=== PATIENT | male | born 1980 | race African-American/Black ===

== ENCOUNTER 2016-12-27 22:06 | Emergency (ER) | payer MEDICAID ==
[~2016-12-27] VITALS: Ht 177.8 cm; Wt 75.0 kg
[2016-12-27] MEDS ORDERED: LEVETIRACETAM 500MG TABLET PO ONE (22:45)
[2016-12-27 23:31] LABS: BASOPHILS % 0.1 % (0.0-2.0); EOSINOPHILS % 1.5 % (0.0-5.0); HEMATOCRIT. 41.1 % (42.0-52.0); HEMOGLOBIN. 14.3 g/dL (14.0-18.0); MEAN CORPUSCULAR HEMOGLOBIN 33.5 pg (28.0-32.0); MEAN CORPUSCULAR VOLUME 96.4 fL (80.0-94.0); MEAN PLATELET VOLUME 8.6 fl (7.4-10.4); MONOCYTES % 6.8 % (2.0-8.0); NEUTROPHILS % 79.6 % (40.0-76.0); PLATELET 110 x1000/uL (130-400); RED BLOOD CELL COUNT 4.27 mill/uL (4.7-6.1); RED CELL DISTRIBUTION WIDTH 12.6 % (11.6-14.6)
[2016-12-27 23:32] LABS: CARBON DIOXIDE 27 mEq/L (21-32); CHLORIDE 97 mEq/L (98-107)
[2016-12-28 00:31] VITALS: BP 134/105
== END 2016-12-28 00:48 | disposition home or self-care (01) ==
LOC: ER 12-28 00:05
DX: R56.9 Unspecified convulsions (principal); F17.210 Nicotine dependence, cigarettes, uncomplicated
CPT/HCPCS: 36415; 80053; 85025; 99284; Z7610

== ENCOUNTER 2017-01-10 02:40 | Inpatient (IN) | payer MEDICAID ==
[~2017-01-10] VITALS: Ht 177.8 cm; Wt 74.8 kg
[2017-01-10] MEDS ORDERED: MORPHINE SULFATE 4 MG/ML CPJ (NOT FOR IM USE) IV STA (05:34)
[2017-01-10] MEDS ORDERED: FAMOTIDINE 20MG/2ML VIAL IV STA (05:34)
[2017-01-10] MEDS ORDERED: ONDANSETRON HCL 4MG/2ML VIAL IV STA (05:34)
[2017-01-10] MEDS ORDERED: SODIUM CHLORIDE 0.9% 1,000 ML IV ONE (05:34)
[2017-01-10 06:11] LABS: INR 1.1; PROTHROMBIN TIME 11.5 sec (9.4-11.6)
[2017-01-10 06:13] LABS: BASOPHILS % 0.7 % (0.0-2.0); EOSINOPHILS % 0.3 % (0.0-5.0); HEMATOCRIT. 38.3 % (42.0-52.0); HEMOGLOBIN. 13.1 g/dL (14.0-18.0); LYMPHOCYTES % 17.9 % (20.0-50.0); MEAN CORPUSCULAR HEMOGLOBIN 32.9 pg (28.0-32.0); MEAN CORPUSCULAR VOLUME 96.6 fL (80.0-94.0); MONOCYTES % 5.1 % (2.0-8.0); PLATELET 204 x1000/uL (130-400); RED BLOOD CELL COUNT 3.97 mill/uL (4.7-6.1); RED CELL DISTRIBUTION WIDTH 13.3 % (11.6-14.6)
[2017-01-10 06:17] LABS: CARBON DIOXIDE 24 mEq/L (21-32); CHLORIDE 103 mEq/L (98-107); ETHANOL BLOOD 191 mg/dL
[2017-01-10] MEDS ORDERED: SODIUM CHLORIDE 0.9% 1,000 ML IV SCH (07:50)
[2017-01-10] MEDS ORDERED: MORPHINE SULFATE 2 MG/ML CPJ (NOT FOR IM USE) IV ONE (08:15)
[2017-01-10 09:00] VITALS: BP 167/104
[2017-01-10 09:14] LABS: CLARITY URINE CLEAR (CLEAR); COLOR URINE DARK YELLOW (YELLOW); GLUCOSE URINE NEGATIVE (NEGATIVE); KETONES URINE NEGATIVE (NEGATIVE); LEUKOCYTE ESTERASE URINE NEGATIVE (NEGATIVE); NITRITE URINE NEGATIVE (NEGATIVE); OCCULT BLOOD URINE NEGATIVE (NEGATIVE); PROTEIN URINE 2+ (NEGATIVE); SPECIFIC GRAVITY URINE 1.035 (1.005-1.030)
[2017-01-10 09:15] VITALS: BP 167/104
[2017-01-10] MEDS ORDERED: DIPHENHYDRAMINE 50MG/ML VIAL IV PRN (09:15)
[2017-01-10] MEDS ORDERED: ACETAMINOPHEN 325MG TABLET PO PRN (09:15)
[2017-01-10] MEDS ORDERED: IPRATROPIUM/ALBUTEROL 0.5-3(2.5)MG/3ML NEB INH PRN (09:15)
[2017-01-10] MEDS ORDERED: ONDANSETRON HCL 4MG/2ML VIAL IV PRN (09:15)
[2017-01-10 09:43] LABS: *AMPHETAMINES SCREEN URINE NEGATIVE (NEGATIVE); *BARBITURATES SCREEN URINE NEGATIVE (NEGATIVE); *BENZODIAZEPINES SCREEN URINE PRESUMTIVE POSITIVE (NEGATIVE); *COCAINE SCREEN URINE NEGATIVE (NEGATIVE); CANNABINOID URINE SCREEN NEGATIVE (NEGATIVE); METHADONE URINE SCREEN NEGATIVE (NEGATIVE); OPIATES URINE SCREEN NEGATIVE (NEGATIVE); PHENCYCLIDINE URINE SCREEN NEGATIVE (NEGATIVE)
[2017-01-10] MEDS: HYDROCODONE/ACETAMINOPHEN 5/325MG TABLET PO PRN ×3 (10:03→20:39)
[2017-01-10] MEDS: CLONIDINE 0.1MG TABLET PO PRN ×2 (10:04→16:51)
[2017-01-10] MEDS ORDERED: SPIR25TA4 PO (11:14)
[2017-01-10] MEDS ORDERED: KEPP500 PO (11:14)
[2017-01-10] MEDS ORDERED: FOLI-43 PO (11:14)
[2017-01-10 12:00] VITALS: BP 163/101
[2017-01-10 12:26] LABS: HEPATITIS B SURFACE ANTIGEN NEGATIVE
[2017-01-10 12:53] LABS: HEPATITIS B CORE AB IGM NEGATIVE
[2017-01-10 12:54] LABS: HEPATITIS A AB IGM NEGATIVE (NEGATIVE)
[2017-01-10] MEDS: LEVETIRACETAM 500MG TABLET PO SCH ×2 (13:07→16:51)
[2017-01-10] MEDS: FOLIC ACID 1MG TABLET PO SCH (13:08)
[2017-01-10] MEDS: SPIRONOLACTONE 25MG TABLET PO SCH (13:08)
[2017-01-10 16:00] VITALS: BP 150/109
[2017-01-10] MEDS: CHLORDIAZEPOXIDE 25MG CAPSULE PO SCH ×2 (16:51→22:19)
[2017-01-10 20:00] VITALS: BP 161/99
[2017-01-10] MEDS: PROPRANOLOL HCL 10MG TABLET PO SCH (20:39)
[2017-01-11] VITALS: BP 178/116
[2017-01-11] MEDS: CLONIDINE 0.1MG TABLET PO PRN (00:40)
[2017-01-11] MEDS: HYDROCODONE/ACETAMINOPHEN 5/325MG TABLET PO PRN ×2 (00:44→09:36)
[2017-01-11 04:00] VITALS: BP 157/108
[2017-01-11] MEDS: CHLORDIAZEPOXIDE 25MG CAPSULE PO SCH ×3 (05:55→21:37)
[2017-01-11 07:44] LABS: BASOPHILS % 0.3 % (0.0-2.0); EOSINOPHILS % 1.2 % (0.0-5.0); HEMATOCRIT. 40.8 % (42.0-52.0); HEMOGLOBIN. 13.9 g/dL (14.0-18.0); LYMPHOCYTES % 12.7 % (20.0-50.0); MEAN CORPUSCULAR VOLUME 96.5 fL (80.0-94.0); MONOCYTES % 6.6 % (2.0-8.0); NEUTROPHILS % 79.2 % (40.0-76.0); PLATELET 208 x1000/uL (130-400); RED BLOOD CELL COUNT 4.23 mill/uL (4.7-6.1); RED CELL DISTRIBUTION WIDTH 12.7 % (11.6-14.6)
[2017-01-11 08:00] VITALS: BP 155/101
[2017-01-11 08:53] LABS: CARBON DIOXIDE 26 mEq/L (21-32); CHLORIDE 91 mEq/L (98-107)
[2017-01-11 08:58] LABS: HDL CHOLESTEROL 121 mg/dL (40-59); LDL CHOLESTEROL 101 mg/dL (5-100)
[2017-01-11] MEDS: FOLIC ACID 1MG TABLET PO SCH (09:31)
[2017-01-11] MEDS: LEVETIRACETAM 500MG TABLET PO SCH ×2 (09:31→16:47)
[2017-01-11] MEDS: SPIRONOLACTONE 25MG TABLET PO SCH (09:31)
[2017-01-11] MEDS: PROPRANOLOL HCL 10MG TABLET PO SCH ×2 (09:31→20:32)
[2017-01-11 12:00] VITALS: BP 119/88
[2017-01-11] MEDS ORDERED: LORAZEPAM 2MG/ML CPJ IV PRN (12:00)
[2017-01-11] MEDS ORDERED: IOHEXOL-300 100 ML BOTTLE ONE (12:00)
[2017-01-11] MEDS ORDERED: SODIUM CHLORIDE 0.9% 10ML VIAL ONE (12:00)
[2017-01-11 16:00] VITALS: BP 130/98
[2017-01-11 20:00] VITALS: BP 115/79
[2017-01-12] VITALS: BP 130/85
[2017-01-12 04:00] VITALS: BP 111/67
[2017-01-12] MEDS: CHLORDIAZEPOXIDE 25MG CAPSULE PO SCH (05:48)
[2017-01-12 06:24] LABS: INR 1.1; PARTIAL THROMBOPLASTIN TIME 28.2 sec (23.4-31.0); PROTHROMBIN TIME 11.5 sec (9.4-11.6)
[2017-01-12 06:36] LABS: BASOPHILS % 0.6 % (0.0-2.0); HEMATOCRIT. 41.6 % (42.0-52.0); HEMOGLOBIN. 14.4 g/dL (14.0-18.0); LYMPHOCYTES % 18.4 % (20.0-50.0); MEAN CORPUSCULAR VOLUME 95.7 fL (80.0-94.0); MEAN PLATELET VOLUME 9.2 fl (7.4-10.4); MONOCYTES % 8.3 % (2.0-8.0); NEUTROPHILS % 69.7 % (40.0-76.0); PLATELET 185 x1000/uL (130-400); RED BLOOD CELL COUNT 4.35 mill/uL (4.7-6.1)
[2017-01-12 07:57] LABS: CARBON DIOXIDE 27 mEq/L (21-32); CHLORIDE 94 mEq/L (98-107)
[2017-01-12 08:00] VITALS: BP 117/81
[2017-01-12] MEDS: SPIRONOLACTONE 25MG TABLET PO SCH (08:30)
[2017-01-12] MEDS: LEVETIRACETAM 500MG TABLET PO SCH (08:31)
[2017-01-12] MEDS: FOLIC ACID 1MG TABLET PO SCH (08:31)
[2017-01-12] MEDS: PROPRANOLOL HCL 10MG TABLET PO SCH (08:31)
== END 2017-01-12 11:20 | disposition left against medical advice (07) | DRG 248 ==
LOC: ER 07:27 → 6EST 07:53 → ENRESERV 08:20
PROVIDERS: ADMIT Internal Medicine; ATTEND Internal Medicine
DX: K65.9 Peritonitis, unspecified (principal); N13.30 Unspecified hydronephrosis; I10 Essential (primary) hypertension; K86.9 Disease of pancreas, unspecified; K70.0 Alcoholic fatty liver; N13.5 Crossing vessel and stricture of ureter without hydronephrosis; R74.0 Nonspecific elevation of levels of transaminase and lactic acid dehydrogenase [LDH]; D63.8 Anemia in other chronic diseases classified elsewhere; D72.819 Decreased white blood cell count, unspecified; F10.10 Alcohol abuse, uncomplicated; G40.909 Epilepsy, unspecified, not intractable, without status epilepticus; F17.200 Nicotine dependence, unspecified, uncomplicated; K29.20 Alcoholic gastritis without bleeding; Z53.21 Procedure and treatment not carried out due to patient leaving prior to being seen by health care provider; E78.5 Hyperlipidemia, unspecified; Z79.899 Other long term (current) drug therapy
CPT/HCPCS: 36415; 74178; 74181; 76705; 80053; 80061; 80076; 80305; 81001; 82248; 83690; 85025; 85610; 85730; 86301; 86705; 86709; 86803; 87040; 87186; 87340; 96361; 96374; 96375; 96376; 99285; A4216; G0482; J2270; J2405; J3490; J7030; Q9967

== ENCOUNTER 2017-02-08 19:08 | Inpatient (IN) | payer MEDICAID ==
[~2017-02-08] VITALS: Ht 182.9 cm; Wt 79.8 kg
[~2017-02-08 19:08] MED LIST: FOLI-43 PO; KEPP500 PO; SPIR25TA4 PO
[2017-02-08] MEDS ORDERED: LEVETIRACETAM 500MG PREMIX 100 ML IV ONE (19:30)
[2017-02-08 19:57] LABS: BASOPHILS % 0.4 % (0.0-2.0); EOSINOPHILS % 2.2 % (0.0-5.0); HEMATOCRIT. 41.2 % (42.0-52.0); LYMPHOCYTES % 41.7 % (20.0-50.0); MEAN CORPUSCULAR HEMOGLOBIN 33.5 pg (28.0-32.0); MEAN CORPUSCULAR VOLUME 98.6 fL (80.0-94.0); MEAN PLATELET VOLUME 7.7 fl (7.4-10.4); MONOCYTES % 6.8 % (2.0-8.0); NEUTROPHILS % 48.9 % (40.0-76.0); PLATELET 158 x1000/uL (130-400); RED BLOOD CELL COUNT 4.18 mill/uL (4.7-6.1); RED CELL DISTRIBUTION WIDTH 13.8 % (11.6-14.6)
[2017-02-08 20:00] LABS: INR 1.1; PARTIAL THROMBOPLASTIN TIME 28.4 sec (23.4-31.0); PROTHROMBIN TIME 11.1 sec (9.4-11.6)
[2017-02-08 20:04] LABS: CARBON DIOXIDE 26 mEq/L (21-32); CHLORIDE 109 mEq/L (98-107)
[2017-02-08 20:08] LABS: CREATINE KINASE 238 IU/L (39-308)
[2017-02-08 20:09] LABS: TROPONIN I < 0.02 ng/mL (0.00-0.04)
[2017-02-08 20:12] LABS: CARBAMAZEPINE < 0.5 ug/mL (4-12)
[2017-02-08 20:19] LABS: ETHANOL BLOOD 431 mg/dL
[2017-02-08 20:20] LABS: PHENOBARBITAL < 2.1 ug/mL (15.0-40.0)
[2017-02-08] MEDS ORDERED: IPRATROPIUM/ALBUTEROL 0.5-3(2.5)MG/3ML NEB INH PRN (21:00)
[2017-02-08] MEDS ORDERED: LORAZEPAM 2MG/ML CPJ IV PRN (21:00)
[2017-02-08] MEDS ORDERED: ONDANSETRON HCL 4MG/2ML VIAL IV PRN (21:00)
[2017-02-08] MEDS ORDERED: CLONIDINE 0.1MG TABLET PO PRN (21:00)
[2017-02-08] MEDS ORDERED: SODIUM CHLORIDE 0.9% 1,000 ML IV ONE (21:14)
[2017-02-08] MEDS ORDERED: LEVETIRACETAM 500MG PREMIX 100 ML IV NR (21:34)
[2017-02-08] MEDS ORDERED: MVI, ADULT NO.1 10 ML, FOLIC ACID 1 MG, THIAMINE HCL 100 MG in SODIUM CHLORIDE 0.9% 1,0... IV SCH ×4 (22:00)
[2017-02-08] MEDS ORDERED: LEVETIRACETAM 500 MG in SODIUM CHLORIDE 0.9% 100 ML IV SCH (22:00)
[2017-02-08] MEDS ORDERED: LORAZEPAM 2MG/ML CPJ IV ONE (22:45)
[2017-02-08 23:10] VITALS: BP 131/96
[2017-02-08 23:30] VITALS: BP 131/96
[2017-02-09] MEDS ORDERED: CHLO25CA10 PO (01:16)
[2017-02-09 04:00] VITALS: BP 116/59
[2017-02-09 06:54] LABS: CHLORIDE 110 mEq/L (98-107)
[2017-02-09 07:00] LABS: BASOPHILS % 0.7 % (0.0-2.0); EOSINOPHILS % 3.3 % (0.0-5.0); HEMATOCRIT. 37.6 % (42.0-52.0); HEMOGLOBIN. 12.6 g/dL (14.0-18.0); MEAN CORPUSCULAR HEMOGLOBIN 33.2 pg (28.0-32.0); MEAN CORPUSCULAR VOLUME 99.4 fL (80.0-94.0); MONOCYTES % 6.1 % (2.0-8.0); NEUTROPHILS % 36.9 % (40.0-76.0); PLATELET 143 x1000/uL (130-400); RED BLOOD CELL COUNT 3.78 mill/uL (4.7-6.1); RED CELL DISTRIBUTION WIDTH 13.6 % (11.6-14.6)
[2017-02-09 07:09] LABS: CARBON DIOXIDE 24 mEq/L (21-32); HDL CHOLESTEROL 96 mg/dL (40-59); LDL CHOLESTEROL 74 mg/dL (5-100)
[2017-02-09 08:00] VITALS: BP 124/88
[2017-02-09] MEDS ORDERED: LEVETIRACETAM 500 MG in SODIUM CHLORIDE 0.9% 100 ML IV SCH (10:00)
== END 2017-02-09 08:50 | disposition left against medical advice (07) | DRG 53 ==
LOC: ER 19:22 → 5WST 19:50 → EDBEDREQ 20:01 → ENRESERV 22:00 → 7WST 02-09 06:02
PROVIDERS: ADMIT Internal Medicine; ATTEND Internal Medicine
DX: G40.509 Epileptic seizures related to external causes, not intractable, without status epilepticus (principal); G31.2 Degeneration of nervous system due to alcohol; G40.909 Epilepsy, unspecified, not intractable, without status epilepticus; F17.200 Nicotine dependence, unspecified, uncomplicated; F10.10 Alcohol abuse, uncomplicated
CPT/HCPCS: 36415; 70450; 80048; 80053; 80061; 80156; 80165; 80184; 80185; 82550; 83735; 84443; 84484; 85025; 85610; 85730; 93005; 93970; 99291; G0482; J1953; J2060; J2405; J3411; J3490; J7030; J7050

== ENCOUNTER 2017-04-13 10:41 | Emergency (ER) | payer MEDICAID ==
[~2017-04-13] VITALS: Ht 177.8 cm; Wt 75.0 kg
[~2017-04-13 10:41] MED LIST changes: +CHLO25CA10 PO
[2017-04-13 10:43] VITALS: BP 142/98
== END 2017-04-13 13:14 | disposition home or self-care (01) ==
LOC: ER 10:53
DX: S81.811D Laceration without foreign body, right lower leg, subsequent encounter (principal); S81.812D Laceration without foreign body, left lower leg, subsequent encounter; X58.XXXD Exposure to other specified factors, subsequent encounter
CPT/HCPCS: 99283; Z7610

== ENCOUNTER 2017-04-20 17:47 | Emergency (ER) | payer MEDICAID ==
[~2017-04-20] VITALS: Ht 177.8 cm; Wt 75.0 kg
[2017-04-20] MEDS ORDERED: ACETAMINOPHEN 325MG TABLET PO STA (18:26)
[2017-04-20] MEDS ORDERED: SODIUM CHLORIDE 0.9% 1,000 ML IV ONE (18:26)
[2017-04-20] MEDS ORDERED: LEVETIRACETAM 500MG PREMIX 100 ML IV ONE (18:30)
[2017-04-20] MEDS ORDERED: ASPIRIN 81MG TABLET PO ONE (18:30)
[2017-04-20 19:01] LABS: BASOPHILS % 0.3 % (0.0-2.0); EOSINOPHILS % 0.9 % (0.0-5.0); HEMATOCRIT. 40.2 % (42.0-52.0); HEMOGLOBIN. 13.8 g/dL (14.0-18.0); MEAN CORPUSCULAR VOLUME 99.1 fL (80.0-94.0); MEAN PLATELET VOLUME 8.1 fl (7.4-10.4); MONOCYTES % 5.7 % (2.0-8.0); NEUTROPHILS % 79.1 % (40.0-76.0); PLATELET 130 x1000/uL (130-400); RED BLOOD CELL COUNT 4.05 mill/uL (4.7-6.1); RED CELL DISTRIBUTION WIDTH 12.8 % (11.6-14.6)
[2017-04-20 19:11] LABS: CHLORIDE 100 mEq/L (98-107); PROTHROMBIN TIME 10.9 sec (9.4-11.6)
[2017-04-20 19:14] LABS: CARBON DIOXIDE 28 mEq/L (21-32); ETHANOL BLOOD < 10 mg/dL
[2017-04-20 19:21] LABS: TROPONIN I < 0.02 ng/mL (0.00-0.04)
[2017-04-20] MEDS ORDERED: SODIUM CHLORIDE 0.9% 1000ML BAG (SEPSIS BOLUS) IV ONE (19:45)
[2017-04-20 20:27] VITALS: BP 125/85
== END 2017-04-20 20:34 | disposition home or self-care (01) ==
LOC: ER 18:02 → CANBEDREQ 20:53
DX: E87.2 Acidosis (principal); R74.0 Nonspecific elevation of levels of transaminase and lactic acid dehydrogenase [LDH]; R56.9 Unspecified convulsions; R32 Unspecified urinary incontinence; I10 Essential (primary) hypertension; F10.10 Alcohol abuse, uncomplicated; Z91.14 Patient's other noncompliance with medication regimen; Z79.82 Long term (current) use of aspirin
CPT/HCPCS: 36415; 70450; 71010; 80053; 82962; 83605; 83690; 84484; 85025; 85610; 93005; 96365; 99285; G0482; J1953; J7030; Z7610

== ENCOUNTER 2017-05-09 03:32 | Emergency (ER) | payer MEDICAID ==
[~2017-05-09] VITALS: Ht 177.8 cm; Wt 81.0 kg
[2017-05-09] MEDS ORDERED: SODIUM CHLORIDE 0.9% 1,000 ML IV ONE (04:14)
[2017-05-09] MEDS ORDERED: LEVETIRACETAM 500MG PREMIX 100 ML IV ONE (04:15)
[2017-05-09 05:42] VITALS: BP 162/85
[2017-05-09] MEDS ORDERED: LEVETIRACETAM 500MG PREMIX 100 ML IV NR (05:45)
[2017-05-09 06:58] LABS: CLARITY URINE CLEAR (CLEAR); COLOR URINE YELLOW (YELLOW); KETONES URINE NEGATIVE (NEGATIVE); LEUKOCYTE ESTERASE URINE NEGATIVE (NEGATIVE); NITRITE URINE NEGATIVE (NEGATIVE); OCCULT BLOOD URINE TRACE (NEGATIVE); PH URINE 6.5 (4.5-8.0); PROTEIN URINE 1+ (NEGATIVE); SPECIFIC GRAVITY URINE 1.014 (1.005-1.030)
[2017-05-09 07:09] LABS: *AMPHETAMINES SCREEN URINE NEGATIVE (NEGATIVE); *BARBITURATES SCREEN URINE NEGATIVE (NEGATIVE); *BENZODIAZEPINES SCREEN URINE PRESUMTIVE POSITIVE (NEGATIVE); *COCAINE SCREEN URINE NEGATIVE (NEGATIVE); CANNABINOID URINE SCREEN NEGATIVE (NEGATIVE); METHADONE URINE SCREEN NEGATIVE (NEGATIVE); OPIATES URINE SCREEN NEGATIVE (NEGATIVE); PHENCYCLIDINE URINE SCREEN NEGATIVE (NEGATIVE)
[2017-05-09 07:31] LABS: BASOPHILS % 0.5 % (0.0-2.0); EOSINOPHILS % 3.5 % (0.0-5.0); HEMATOCRIT. 40.4 % (42.0-52.0); HEMOGLOBIN. 13.9 g/dL (14.0-18.0); LYMPHOCYTES % 35.5 % (20.0-50.0); MEAN CORPUSCULAR HEMOGLOBIN 34.1 pg (28.0-32.0); MEAN PLATELET VOLUME 7.2 fl (7.4-10.4); MONOCYTES % 5.9 % (2.0-8.0); NEUTROPHILS % 54.6 % (40.0-76.0); PLATELET 243 x1000/uL (130-400); RED BLOOD CELL COUNT 4.08 mill/uL (4.7-6.1); RED CELL DISTRIBUTION WIDTH 13.2 % (11.6-14.6)
[2017-05-09 07:47] LABS: CARBON DIOXIDE 27 mEq/L (21-32); CHLORIDE 109 mEq/L (98-107); CREATINE KINASE 524 IU/L (39-308); TROPONIN I < 0.02 ng/mL (0.00-0.04)
[2017-05-09 07:49] LABS: PHENOBARBITAL < 2.1 ug/mL (15.0-40.0)
[2017-05-09 07:57] LABS: CARBAMAZEPINE < 0.5 ug/mL (4-12); VALPROIC ACID < 3.0 ug/mL (50-100)
[2017-05-09 07:59] LABS: ETHANOL BLOOD 326 mg/dL
== END 2017-05-09 08:01 | disposition home or self-care (01) ==
LOC: ER 03:32
DX: G40.909 Epilepsy, unspecified, not intractable, without status epilepticus (principal); F10.10 Alcohol abuse, uncomplicated; I10 Essential (primary) hypertension; Y90.8 Blood alcohol level of 240 mg/100 ml or more
CPT/HCPCS: 36415; 80053; 80156; 80165; 80184; 80185; 80305; 81001; 82550; 84443; 84484; 85025; 93005; 96361; 96365; 96366; 99285; G0482; J1953; J7030; Z7610